=== PATIENT | male | born 1995 | race Caucasian/White ===

== ENCOUNTER 2018-03-11 04:42 | Emergency (ER) | payer SELFPAY ==
[2018-03-11 04:45] VITALS: BP 147/82; PULSE 102; RESP 20; TEMP 37.9; O2SAT 97; BMI 20.9
[2018-03-11] MEDS: Acetaminophen 500 MG Tablet 1000 MG PO (05:04)
--- NOTE | 2018-03-11 05:06 | ED.VISSUMM ---
- ER Visit Summary Date of Service: 03/11/18 Chief Complaint: [Sore throat, toothache] History of Present Illness: The patient is a 22 M [the presents with a left lower molar toothache that began over the last several days. He saw his dentist within the last several days and was also experiencing a sore throat at that time. He describes mild pain with swallowing. He is able to tolerate liquids and solids without difficulty. Earlier he noted a bubble near one of his lower teeth that drained on its own. He describes a low-grade fever. No cough. No appreciable lymphadenopathy on exam. He overall appears well and in no acute distress. He has no other complaints.] Physical Examination: [General: The patient appears well and in no apparent distress. Patient is resting comfortably on cart. Skin: Warm, dry, no pallor noted. No rash. Head: Normocephalic, atraumatic Neck: Supple, nontender. No meningismus. ENT: Moist mucus membranes, pharynx within normal limits. No focal abscess on examination. No sublingual edema. Airway patent. Tenderness on tooth percussion left lower molar region. Cardiovascular: Regular Rate and Rhythm, no gallups or rubs Respiratory: Patient is in no distress, no accessory muscle use, lungs are clear to auscultation, no wheezing, rales or rhonchi Musculoskeletal: normal ROM, no deformity, no tenderness, no swelling. GI: No tenderness to palpation, no masses appreciated. No rebound, guarding, or rigidity noted. Neurological: A&O, normal strength and sensation. Psychiatric: Cooperative] Test Results: [Strep negative] Emergency Department Course and Treatment: [Patient given Tylenol for pain. Strep test was sent that was negative. Patient will be placed on Pen-Vee K for 5 days and will follow closely with his dentist. He was instructed to return with any new or worsening symptoms. Patient and family understand and are agreeable with this plan of care. Patient was discharged home in stable condition.] Treatment Plan: [see above] Disposition: [discharge home] Impression: [Odontalgia, Pharyngitis] This note was generated with [employer] dictation software. It may contain incorrect words, spelling, and punctuation that were not noted in review of the chart prior to signing ED Disposition - Plan for ED Patient: Disposition: Home or Assisted Living Chief Complaint: Dental Instructions: Dental Abscess Prescriptions: Penicillin V Potassium 500 mg PO 4X/DAY #20 tab Referrals: Scotty Gorman [Primary Care Provider] -
[2018-03-11 05:39] VITALS: RESP 18
[2018-03-11] MEDS: Penicillin Vk 250 MG Tablet 500 MG PO (05:43)
[2018-03-11 05:45] VITALS: TEMP 37.4
== END 2018-03-11 05:46 | disposition home or self-care (01) ==
PROVIDERS: Emergency Provider Emergency Medicine; Family Provider Family Medicine; PCP Family Medicine
DX: K08.89 Other specified disorders of teeth and supporting structures (principal); J02.9 Acute pharyngitis, unspecified; K02.9 Dental caries, unspecified
CPT/HCPCS: 87880; 99283